=== PATIENT | male | born 1950 | race Caucasian/White ===

== ENCOUNTER 2018-03-05 20:44 | Emergency (ER) | payer SELFPAY ==
[2018-03-05 21:33] LABS: BASOPHIL % 0.6 % (0.0-2.0); EOSINOPHIL # 0.2 TH/MM3 (0-0.4); HEMATOCRIT 39.5 % (39.0-51.0); HEMO FLAGS DIFF FINAL; HEMOGLOBIN 13.4 GM/DL (13.0-17.0); LYMPHOCYTE # 2.3 TH/MM3 (1.0-4.8); MEAN CELL VOLUME 89.5 FL (80.0-100.0); MEAN CORPUSCULAR HEMOGLOBIN 30.3 PG (27.0-34.0); MEAN CORPUSCULAR HGB CONC 33.8 % (32.0-36.0); MEAN PLATELET VOLUME 7.6 FL (7.0-11.0); MONO % 7.1 % (0.0-8.0); MONOCYTE # 0.5 TH/MM3 (0-0.9); NEUT % 56.3 % (16.0-70.0); PLATELET COUNT 242 TH/MM3 (150-450); RED BLOOD COUNT 4.42 MIL/MM3 (4.50-5.90); RED CELL DISTRIBUTION WIDTH 13.1 % (11.6-17.2)
[2018-03-05 21:40] LABS: CHLORIDE 110 MEQ/L (98-107); POTASSIUM 3.8 MEQ/L (3.5-5.1); SODIUM (NA) 141 MEQ/L (136-145)
[2018-03-05 21:43] LABS: CALCIUM 8.6 MG/DL (8.5-10.1)
[2018-03-05 21:44] LABS: ALBUMIN 3.6 GM/DL (3.4-5.0); ANION GAP 6 MEQ/L (5-15); BICARBONATE 25.1 MEQ/L (21.0-32.0); BLOOD UREA NITROGEN 19 MG/DL (7-18); GLUCOSE,RANDOM 86 MG/DL (74-106)
[2018-03-05 21:47] LABS: ALT (GPT) 25 U/L (12-78); AST (GOT) 22 U/L (15-37); CREATININE 0.87 MG/DL (0.60-1.30); GLOMERULAR FILTRATION RATE 88 ML/MIN (>89)
[2018-03-05 21:48] LABS: TOTAL BILIRUBIN ADULT 0.4 MG/DL (0.2-1.0); TOTAL PROTEIN 6.9 GM/DL (6.4-8.2)
[2018-03-05 21:49] LABS: CREATINE KINASE 399 U/L (39-308)
[2018-03-05 21:50] LABS: ALKALINE PHOSPHATASE 77 U/L (45-117)
[2018-03-05] MEDS: SODIUM CHLOR 0.9% 1000 ML INJ 1,000 ML IV (21:55)
[2018-03-05] MEDS: KETOROLAC TROMETHAMINE 30 MG/ML (IVP) VIAL IV PUSH (21:57)
[2018-03-05 22:11] LABS: CKMB 1.6 NG/ML (0.5-3.6); CKMB % 0.4 % (0.0-4.0)
== END 2018-03-05 23:54 | disposition home or self-care (01) ==
LOC: PHEFT 20:44
DX: S86.912A Strain of unspecified muscle(s) and tendon(s) at lower leg level, left leg, initial encounter (principal); Z72.0 Tobacco use; W10.9XXA Fall (on) (from) unspecified stairs and steps, initial encounter
CPT/HCPCS: 80053; 82550; 82552; 85025; 93971; 96361; 96374; 99285-25

== ENCOUNTER 2018-04-02 09:50 | Emergency (ER) | payer SELFPAY ==
[~2018-04-02] VITALS: Ht 177.8 cm; Wt 82.5 kg
[2018-04-02 10:04] VITALS: BP 128/63; PULSE 50; RESP 16; TEMP 98.3; O2SAT 98
[2018-04-02] MEDS ORDERED: DEXAMETHASONE SOD PHOS 4 MG/ML VIAL IM ONE (10:30)
[2018-04-02] MEDS ORDERED: KETOROLAC TROMETHAMINE 60 MG/2 ML (IM) VIAL IM ONE (10:30)
[2018-04-02] MEDS ORDERED: TRAM50TA PO (10:45)
[2018-04-02] MEDS ORDERED: ROBA750T PO (10:45)
[2018-04-02] MEDS ORDERED: KETO10 PO (10:45)
--- NOTE | 2018-04-02 10:46 | PD ---
HPI Chief Complaint: Back/ Neck Pain or Injury Time Seen by Provider: 10:28 Travel History International Travel<30 days: No Contact w/Intl Traveler<30days: No Traveled to known affect area: No History of Present Illness HPI 67-year-old male here with chief complaint of "sciatica pain". He reports symptoms have been present on and off for the last 3 weeks. He reports prior history of sciatica and this feels the same. Ibuprofen is on relieving the pain. He denies fever, chills, incontinence, saddle anesthesia, paresthesia or weakness of the extremity. He has pain within the left low back/gluteal region that radiates down into the leg. Pain is constant and aching. Severity moderate. No aggravating or alleviating factors. PFSH Past Medical History Medical History: Denies Significant Hx Diminished Hearing: No Immunizations Current: Yes Past Surgical History Surgical History: No Previous Surgery Social History Alcohol Use: Yes ([facility]) Tobacco Use: Yes Substance Use: No Allergies-Medications (Allergen,Severity, Reaction): Coded Allergies: No Known Allergies (Verified Adverse Reaction, Unknown, 04/02/18) Reported Meds & Prescriptions Reported Meds & Active Scripts Active No Active Prescriptions or Reported Medications Review of Systems Except as stated in HPI: all other systems reviewed are Neg General / Constitutional: No: Fever Physical Exam Narrative GENERAL: Alert and well-appearing 67-year-old male. Ambulates with a steady gait. SKIN: Warm and dry. HEAD: Normocephalic. EYES: No injection or drainage. NECK: Supple, trachea midline. CARDIOVASCULAR: Regular rate and rhythm without murmurs, gallops, or rubs. RESPIRATORY: Breath sounds equal bilaterally. No accessory muscle use. GASTROINTESTINAL: Abdomen soft, non-tender, nondistended. MUSCULOSKELETAL: No cyanosis, or edema. Legs are nontender. Normal strength and sensation in the lower extremities. 2+ DTRs. Ambulates with steady gait. BACK: +TTP over the left sacroiliac region. Positive straight leg raise on the left. Without obvious deformity. No CVA tenderness. Data Data Last Documented VS Vital Signs Date Time Temp Pulse Resp B/P (MAP) Pulse Ox O2 Delivery O2 Flow Rate FiO2 04/02/18 10:04 98.3 50 16 128/63 (84) 98 Orders Orders Ketorolac Inj (Toradol Inj) (04/02/18 10:30) Dexamethasone Inj (Decadron Inj) (04/02/18 10:30) MDM Medical Decision Making Medical Screen Exam Complete: Yes Emergency Medical Condition: Yes Differential Diagnosis Sciatica versus lumbar strain versus leg pain Narrative Course 67-year-old male here with sciatic pain. He has a normal neurologic exam. He was given a shot of Toradol and Decadron. He is instructed to follow-up with orthopedist. Diagnosis Primary Impression: Sciatica Qualified Codes: M54.32 - Sciatica, left side Referrals: Primary Care Physician Additional Instructions: Take ketorolac as directed. Robaxin as needed for muscle spasm. Ultram as needed for severe pain unrelieved by ketorolac Light stretching as directed. Follow-up with the orthopedist. Scripts Tramadol (Tramadol) 50 Mg Tab 50 MG PO Q6H Y for PAIN, #10 TAB 0 Refills Prov: Marivel Valle 04/02/18 Ketorolac (Ketorolac) 10 Mg Tab 10 MG PO TID for Pain Management, #15 TAB 0 Refills Prov: Marivel Valle 04/02/18 Methocarbamol (Robaxin) 750 Mg Tab 750 MG PO QID for Muscle Spasm, #12 TAB 0 Refills Prov: Marivel Valle 04/02/18 Disposition: 01 DISCHARGE HOME Condition: Stable Marivel Valle Apr 02, 2018 10:45
== END 2018-04-02 11:03 | disposition home or self-care (01) ==
LOC: PHED 09:50
DX: M54.32 Sciatica, left side (principal); Z72.0 Tobacco use
CPT/HCPCS: 96372; 99283; J1100; J1885